=== PATIENT | female | born 1955 | race Caucasian/White ===

== ENCOUNTER 2018-11-10 10:12 | Emergency (ER) | payer BC, MEDICAID ==
[~2018-11-10] VITALS: Ht 162.6 cm; Wt 65.9 kg
[~2018-11-10 10:12] MED LIST: ASPI81 PO; FLUO-191 PO; GLIP5TAB11 PO; HYDR25TA PO; INSLAN SQ; INSU100C3 SQ; LISI-662 PO; METF500T7 PO; PANT40TA25 PO
[2018-11-10 10:29] LABS: GLUCOSE,POINT OF CARE 162 MG/DL (70-110)
[2018-11-10 11:54] LABS: APPEARANCE,URINE CLOUDY (CLEAR); BILIRUBIN,URINE NEGATIVE (NEGATIVE); GLUCOSE, URINE (UA) >=1000 mg/dL (NEGATIVE); KETONES,URINE NEGATIVE (NEGATIVE); LEUKOCYTE ESTERASE ,URINE SMALL (NEGATIVE); NITRATE,URINE NEGATIVE (NEGATIVE); OCCULT BLOOD,URINE LARGE (NEGATIVE); PROTEIN,URINE NEGATIVE (NEGATIVE); UROBILINOGEN,URINE 0.2 mg/dL (<=1.0)
[2018-11-10 12:07] LABS: BACTERIA,URINE Few /HPF (None Seen); RENAL EPITHELIAL CELLS,URINE Few /LPF (None Seen); SQUAMOUS EPITHELIAL CELL,UR Few /LPF (None Seen)
[2018-11-10] MEDS ORDERED: KETOROLAC TROMETHAMINE 60 MG/2 ML VIAL IM ONE (12:30)
[2018-11-10 12:48] LABS: BASOPHILS % (AUTO) 0.2 % (0.0-2.0); EOSINOPHILS % (AUTO) 0.5 % (1.0-6.0); HEMATOCRIT 41.6 % (36-46); HEMOGLOBIN 13.6 g/dL (12.0-16.0); LYMPHOCYTES # (AUTO) 1.8 K/uL (1.0-4.8); LYMPHOCYTES % (AUTO) 18.5 % (22.0-44.0); MEAN CORPUSCULAR HEMOGLOBIN 30.2 pg (26.0-34.0); MEAN CORPUSCULAR HGB CONC 32.8 G/dL (31.0-37.0); MEAN CORPUSCULAR VOLUME 92 fL (80-100); MONOCYTES # (AUTO) 0.8 K/uL (0.1-1.0); MONOCYTES % (AUTO) 7.9 % (2.0-9.0); NEUTROPHILS # (AUTO) 7.1 K/uL (1.8-7.7); NEUTROPHILS % (AUTO) 72.9 % (40.0-70.0); PLATELET COUNT (AUTO) 219 K/uL (150-450); RED BLOOD CELL COUNT(AUTO) 4.52 MIL/uL (4.00-5.20); RED CELL DISTRIBUTION WIDTH 13.2 % (11.5-14.5)
[2018-11-10 13:00] LABS: ANION GAP 11 mmol/L (8-16); CALCIUM, TOTAL 9.9 mg/dL (8.8-10.5); CARBON DIOXIDE 29 mmol/L (22-29); CHLORIDE 100 mmol/L (98-107); CREATININE 0.69 mg/dL (0.60-1.30); GLOMERULAR FILTR. RATE CALC > 60 mL/min (>60); GLUCOSE,RANDOM 133 mg/dL (70-110); POTASSIUM 4.4 mmol/L (3.5-5.1); SODIUM SERUM 140 mmol/L (136-145); UREA NITROGEN, BLOOD 21 mg/dL (7-18)
[2018-11-10 13:06] LABS: ALANINE AMINOTRANSFERASE 33 U/L (12-78); ALKALINE PHOSPHATASE 73 U/L (46-116); ASPARTATE AMINOTRANSFERASE 18 U/L (15-37); BILIRUBIN,TOTAL 0.3 mg/dL (0.1-1.0); LIPASE 241 U/L (73-393); TOTAL PROTEIN, SERUM 7.7 g/dL (6.4-8.2)
[2018-11-10 13:29] VITALS: BP 119/74
== END 2018-11-10 13:52 | disposition home or self-care (01) ==
LOC: EMS 10:15
DX: N39.0 Urinary tract infection, site not specified (principal); G89.29 Other chronic pain; M54.5 Low back pain; E11.9 Type 2 diabetes mellitus without complications; E78.00 Pure hypercholesterolemia, unspecified; I10 Essential (primary) hypertension; Z98.890 Other specified postprocedural states; Z79.899 Other long term (current) drug therapy; Z88.0 Allergy status to penicillin; Z91.041 Radiographic dye allergy status; Z91.040 Latex allergy status; Z91.013 Allergy to seafood
CPT/HCPCS: 36415; 74176; 80053; 81001; 82962; 83690; 85025; 87077; 87086; 96372; 99284; J1885

== ENCOUNTER 2018-11-14 13:06 | Emergency (ER) | payer BC, MEDICAID ==
[~2018-11-14] VITALS: Ht 162.6 cm; Wt 65.0 kg
[~2018-11-14 13:06] MED LIST changes: -METF500T7 PO
[2018-11-14 13:29] LABS: GLUCOSE,POINT OF CARE 176 MG/DL (70-110)
[2018-11-14] MEDS ORDERED: DOXYCYCLINE HYCLATE 100 MG CAPSULE PO ONE (14:15)
[2018-11-14 14:55] VITALS: BP 132/72
== END 2018-11-14 16:02 | disposition home or self-care (01) ==
LOC: EMS 13:08
DX: S10.96XA Insect bite of unspecified part of neck, initial encounter (principal); I10 Essential (primary) hypertension; E11.9 Type 2 diabetes mellitus without complications; E78.00 Pure hypercholesterolemia, unspecified; Z88.0 Allergy status to penicillin; Z91.040 Latex allergy status; Z91.013 Allergy to seafood; Z88.8 Allergy status to other drugs, medicaments and biological substances; Z79.82 Long term (current) use of aspirin; Z79.4 Long term (current) use of insulin; Z79.899 Other long term (current) drug therapy; W57.XXXA Bitten or stung by nonvenomous insect and other nonvenomous arthropods, initial encounter; Y93.89 Activity, other specified; Y92.89 Other specified places as the place of occurrence of the external cause; Y99.8 Other external cause status

== ENCOUNTER 2020-11-24 09:06 | Emergency (ER) | payer MEDICARE, MEDICAID ==
[~2020-11-24] VITALS: Ht 162.6 cm; Wt 59.1 kg
[~2020-11-24 09:06] MED LIST changes: +ASPI-1450 PO; -ASPI81 PO; -HYDR25TA PO; +HYDR25TA2 PO; -LISI-662 PO; +LISI-894 PO; +PANT-31 PO; -PANT40TA25 PO
[2020-11-24] MEDS ORDERED: SEMA1PEN SQ (09:27)
[2020-11-24] MEDS ORDERED: ESCI-8 PO (09:27)
[2020-11-24] MEDS ORDERED: INSU3INS3 SQ (09:27)
[2020-11-24] MEDS ORDERED: CANA1TAB4 PO (09:27)
[2020-11-24] MEDS ORDERED: ATOR20TA86 PO (09:27)
[2020-11-24 09:31] LABS: GLUCOSE,POINT OF CARE 178 MG/DL (70-110)
[2020-11-24 09:51] LABS: COVID AG,FIA SOURCE NASOPHARYNGEAL
[2020-11-24 10:07] LABS: RAPID GROUP A STREP NEGATIVE (NEGATIVE)
[2020-11-24 10:17] LABS: INFLUENZA TYPE A NEGATIVE FOR TYPE A (NEGATIVE); INFLUENZA TYPE B NEGATIVE FOR TYPE B (NEGATIVE)
[2020-11-24 10:58] VITALS: BP 132/63
== END 2020-11-24 11:06 | disposition home or self-care (01) ==
LOC: EMS 09:45
DX: J06.9 Acute upper respiratory infection, unspecified (principal); J34.89 Other specified disorders of nose and nasal sinuses; E11.9 Type 2 diabetes mellitus without complications; E78.00 Pure hypercholesterolemia, unspecified; I10 Essential (primary) hypertension; Z20.822 Contact with and (suspected) exposure to COVID-19; Z88.8 Allergy status to other drugs, medicaments and biological substances; Z91.040 Latex allergy status; Z88.0 Allergy status to penicillin; Z91.013 Allergy to seafood; Z79.899 Other long term (current) drug therapy
CPT/HCPCS: 82962; 87430; 87804; 99283